=== PATIENT | male | born 1975 | race Two or more races ===

== ENCOUNTER 2025-08-02 10:11 | Outpatient (AMB) | payer MEDICARE, MEDICAID, SELFPAY ==
--- NOTE | 2025-08-02 10:21 | GSCOFFNT_ITS ---
Vital Signs - [facility] 08/02/25 10:29 Height 1.68 m Height Method Measured Weight 98.231 kg Weight Measurement Method Standing Scale BMI 34.9 BP 131/82 H Blood Pressure Source Automatic Cuff Blood Pressure Location Left Upper Arm Position Sitting Respiration 18 Pulse 80 Pulse Source Monitor Temp 98.0 F Temp Source Temporal Artery Scan Pulse Oximetry (%) 93 L Oxygen Delivery Method Room Air Med/Allergies Allergies & Medications Allergies No Known Allergies Allergy (Verified 08/02/25 10:31) Medication Reconciliation lisinopril 20 mg-hydrochlorothiazide 25 mg tablet 1 tab PO QDAY 08/02/25 [History Confirmed 08/02/25] olanzapine 20 mg tablet 20 mg PO QPM 08/02/25 [History Confirmed 08/02/25] prazosin 2 mg capsule 2 mg PO QPM 08/02/25 [History Confirmed 08/02/25] sertraline 50 mg tablet 50 mg PO QDAY 08/02/25 [History Confirmed 08/02/25] tirzepatide (weight loss) 2.5 mg/0.5 mL subcutaneous pen injector (Zepbound) 2.5 mg subcut QWEEK 08/02/25 [History Confirmed 08/02/25] trazodone 50 mg tablet 50 mg PO QDAY 08/02/25 [History Confirmed 08/02/25] MA Intake Visit Data Collection New Patient or Established: Established Patient (seen at [facility] within 3 years) Seen by Clinical Staff ONLY (RN/MA): No Reason for Visit:: REFERRAL COLONOSCOPY Pain Present Currently: No Pain Scale Used: Arthur-[place]/Numerical Planer Offbearer Required: No PCP or OBGYN visit in last 3 months: Yes Hx Now: No Do You Feel Safe at Home: Yes Authorities Contacted: N/A Smoking Status Smoking Status: Current some day smoker Cessation Counseling Provided: TERESA was advised that quitting smoking is the single most important factor to protect the health of themselves and their family. Discussed the benefits of quitting smoking with patient. Encouraged patient to quit smoking and provided Cessation assistance materials and resources. Tobacco Use: Cigarette (10 A DAY) Years smoked: 29 Are you interested in quitting?: No Immunization / Flu Flu Vaccine in the Last 12 Months: No Flu Vaccine Exclusion Criteria: Refused by Patient Past Medical History Social History SMOKING STATUS: Smoking status: Current some day smoker Past Medical History Comments PMH COMMENT: Prediabetes and HTN. HPI HPI Narrative 50 yo Male with a PMHx of prediabetes and HTN presents to clinic for a referal for colonoscopy. As per pt, he has never had a colonoscopy before and is due for this procedure. Pt reports a healthy appetite and eats 3 square meals a day on a standard [place] diet. Pt hydrates adequately but reports of poor fiber consumption. Denies nausea, vomiting, diarrhea, and constipation, changes in bowel habits, blood in stool, anorexia and unintentional weight loss. He admits to a 29 year pack history of smoking, but denies alcohol or drug consuption. Pt has no previous surgical history, and denies a family history of CRC or polyps ROS Review of Systems Narrative Review of Systems: All systems reviewed, normal except as documented. Objective/Exam General General Appearance: alert, cooperative and well groomed Resp Respiratory exam: Absent respiratory distress Assessment & Plan Diagnosis / Problem List (1) Encounter for screening colonoscopy: Status: Acute Assessment & Plan: 50M PMHx of prediabetes and HTN presenting to clinic for his first colonoscopy. Pt is otherwise healthy, and denies any abdominal or other systemic complaints. I explained benefits/risks including bleeding, perforation requiring emergency surgery as well as the potential for needing to abort prematurely for safety. I also explained conscious sedation. All questions were answered and pt is agreeable to proceeding Office Procedures GNS Level of Care Nursing/Assessment Patient Status: Established Patient Nursing Assessment/Reassesment: Medication Reconciliation, Orthostatic Vitals, Update PMH in EMR and Vital Signs Coordination of Care: Complex Care and Chronic Disease 1-5, Consent,records obtained, informed consent, Education Simp Pt/Fam, Results/Orders obtained and Staff clarify orders Established Patient Charge Established Patient Point Assignment: 100 Established Patient Point Charge: EP Level 3 (80-115) Patient Portal Questionaires Social History Tobacco History Smoking Status: Current some day smoker Domestic Abuse History Do You Feel Safe at Home: Yes Review of Systems Report any current symptoms Only answer those that you have currently: Past Medical History Past Medical History Have you ever been diagnosed with any of the following:
[2025-08-02 10:29] VITALS: BP 131/82; PULSE 80; RESP 18; TEMP 36.7; O2SAT 93; BMI 34.9
== END 2025-08-02 11:02 | disposition home or self-care (01) ==
PROVIDERS: Supervising Provider Surgery; Visit Provider Surgery
DX: Z12.11 Encounter for screening for malignant neoplasm of colon (principal); I10 Essential (primary) hypertension; R73.03 Prediabetes
CPT/HCPCS: 99213; G0463